=== PATIENT | female | born 1955 | race Caucasian/White ===

== ENCOUNTER → 2016-05-08 | Outpatient (CLI) | payer OTHER ==
--- NOTE | 2016-05-08 10:38 | MA ---
Screening Digital Mammogram With iCAD Analysis Clinical Indications: Routine screening. Her paternal grandmother was diagnosed with breast cancer. Technique: Standard cephalocaudal projections are obtained. Digital breast tomosynthesis was performe d in the MLO projection with reconstruction at 1.0 mm slice thickness and composite MLO views reconst ructed. This examination is processed by the iCAD computer aided detection system. Comparison: April 2015, April 2014, April 2013, March 2012, March 2011, March 2010, No vember 2008. Breast density: Type C: Heterogeneously dense. Findings: CAD was reviewed. Increased nodularity is seen in the inferior right breast. No spiculated masses, suspicious calcifications or secondary signs of malignancy are seen. The left breast is stabl e in appearance. Impression: Increased right breast nodularity requires further evaluation, BI-RADS 0. Recommendation: Spot compression assessment of the right breast with ultrasound suggested if the abno rmality persists on diagnostic evaluation. . A verbal report was given to the patient. [facility] will send a result letter to the patient. Negative mammography should not preclude additional workup of a clinically suspicious finding. The patient's information is entered into a reminder system with a target due date for her next mammo gram.
--- NOTE | 2016-05-08 11:12 | MA ---
Diagnostic Digital Mammogram Right Breast With iCAD Analysis Reason for examination: Evaluate nodular asymmetry in the lower right breast identified on screening tomographic study performed earlier today. Technique: Oblique and craniocaudal spot compression views are obtained. Also, a true lateral is perf ormed. The examination is processed by the iCAD computer-aided detection system. Findings: A small nodular asymmetry does persist best demonstrated on the oblique spot compression vi ew. No suspicious microcalcifications are seen. Impression: Persistent nodular asymmetry requires further evaluation, BI-RADS 0. Recommendation: Targeted right breast ultrasound which will be subsequently performed today. A verbal report was given to the patient. [facility] with send a result letter.
--- NOTE | 2016-05-08 11:55 | US ---
Right Breast Ultrasound History: Evaluate small nodule seen in the inferior right breast on diagnostic mammography performed earlier today. Technique: Longitudinal and transverse images were obtained utilizing a 15 MHz transducer. Color Dop pler evaluation is employed for assessment of vascularity. Findings: At the 7:00 position 4 cm from the nipple there is a anechoic structure measuring 4 x 3 mm. The appearance is consistent with a simple cyst and would correlate well with the mammographic abnor mality. Prominent fibroglandular elements are noted. No suspicious solid mass is seen.. Impression: Benign findings when considering mammographic and sonographic assessment, BI-RADS 2. Recommendation: Resume routine mammographic screening in one year as long as physical examination is negative.. A verbal report was given to the patient. [facility] will send a result letter to the patient.
== END ==
LOC: FIMAGING 09:58
DX: Z12.31 Encounter for screening mammogram for malignant neoplasm of breast (principal); N63 Unspecified lump in breast
CPT/HCPCS: G0202; G0206

== ENCOUNTER → 2017-05-21 | Outpatient (CLI) | payer OTHER | LOC: FIMAGING 08:51 | PROVIDERS: ATTEND Internal Medicine | DX: Z12.31 Encounter for screening mammogram for malignant neoplasm of breast (principal); Z80.3 Family history of malignant neoplasm of breast ==

== ENCOUNTER → 2018-05-27 | Outpatient (CLI) | payer OTHER | LOC: FIMAGING 08:39 | PROVIDERS: ATTEND Internal Medicine | DX: Z12.31 Encounter for screening mammogram for malignant neoplasm of breast (principal) ==

== ENCOUNTER → 2018-06-14 | Outpatient (CLI) | payer OTHER, MEDICARE | LOC: FIMAGING 09:54 ==